=== PATIENT | male | born 1950 | race Caucasian/White ===

== ENCOUNTER 2017-02-10 21:26 | Inpatient (IN) | payer MEDICAID, MEDICARE ==
[~2017-02-10] VITALS: Ht 188 cm; Wt 86.6 kg
[2017-02-10] MEDS ORDERED: ONDANSETRON HCL/PF 4 MG/2 ML VIAL IVP ONE (21:30)
[2017-02-10] MEDS ORDERED: IV NS 0.9% 500 ML BAG IV ONE (21:30)
[2017-02-10] MEDS ORDERED: IV SET PRIMARY 1 EA INFUS.SET MC ONE ×2 (21:30→22:39)
[2017-02-10] MEDS ORDERED: ONDANSETRON HCL/PF 4 MG/2 ML VIAL ONE (21:30)
[2017-02-10] MEDS ORDERED: IV NS 0.9% 500 ML IV ONE (21:30)
--- NOTE | 2017-02-10 21:30 | NUR ---
66 YO MALE BB AMBULANCE FROM [facility]. PT IS ALERT X 3, C/O NAUSEA VOMIT WITH ABD PAIN. PT ASSISTED TO ER BED, SKIN WARM AND DRY, RR EVEN AND UNLABORED. AWAITING ORDERS FROM [facility]
--- NOTE | 2017-02-10 21:36 | NUR ---
20G LEFT HAND IV STARTED. MEDICATED PT ORDERED
[2017-02-10 21:46] LABS: BASOPHILS # (AUTO) 0.5 /CMM (0.0-0.2); BASOPHILS % (AUTO) 3.4 % (0.0-2.0); EOSINOPHILS # (AUTO) 0.5 /CMM (0.0-0.7); EOSINOPHILS % (AUTO) 3.9 % (0.0-6.0); HEMATOCRIT 50 % (39-51); HEMOGLOBIN 16.8 g/dL (13.5-17.5); LYMPHOCYTES # (AUTO) 1.7 /CMM (0.8-4.8); LYMPHOCYTES % (AUTO) 12.4 % (20.0-44.0); MEAN CORPUSCULAR HEMOGLOBIN 31 PG (26.0-33.0); MEAN CORPUSCULAR HGB CONC 34 g/dl (31.0-36.0); MEAN CORPUSCULAR VOLUME 91 fL (80-96); MONOCYTES # (AUTO) 1.2 /CMM (0.1-1.30); MONOCYTES % (AUTO) 8.8 % (2.0-12.0); NEUTROPHILS % (AUTO) 71.5 % (43.0-81.0); PLATELET COUNT (AUTO) 261 /CMM (150-450); RED BLOOD CELL COUNT(AUTO) 5.44 MIL/uL (4.5-6.0); WHITE BLOOD COUNT (AUTO) 13.9 K/uL (4.3-11.0)
[2017-02-10 22:05] LABS: CALCIUM, SERUM 8.2 mg/dL (8.5-10.1); CREATININE 2.9 mg/dL (0.6-1.3)
[2017-02-10 22:10] LABS: BILIRUBIN,DIRECT 0.1 mg/dL (0.0-0.2); BILIRUBIN,TOTAL 0.8 mg/dL (0.2-1.0); TOTAL PROTEIN, SERUM 8.1 g/dL (6.4-8.2)
[2017-02-10] MEDS ORDERED: IV NS 0.9% 1,000 ML BAG IV ONE (22:30)
[2017-02-10] MEDS ORDERED: DIPHENOXYLATE HCL/ATROP SULF 1 UDTAB TABLET PO ONE (22:30)
[2017-02-10 22:37] LABS: ABG BASE EXCESS -9.5 mmol/L; ABG OXYGEN SATURATION 93.9 % (92.0-98.5); ABG PCO2 31.8 mmHg (35.0-45.0); ABG PH 7.304 (7.350-7.450); ABG PO2 78.6 mmHg (75.0-100.0); ABG TOTAL HEMOGLOBIN 16.4 G/dL (13.5-18.0); AaDO2 33.1 mmHg; COHb 1.2 % (0.5-1.5); MetHb 0.3 % (0.0-1.5); O2Hb 92.5 % (94.0-97.0); SITE, ABG Right Radial; VENT MODE, BG ROOM AIR
[2017-02-10] MEDS ORDERED: DIPHENOXYLATE HCL/ATROP SULF 1 UDTAB TABLET ONE (22:39)
[2017-02-10] MEDS ORDERED: IV NS 0.9% 1,000 ML ONE (22:39)
--- NOTE | 2017-02-10 22:47 | NUR ---
MEDICATED PT ORDERED
--- NOTE | 2017-02-10 22:51 | NUR ---
Spoke to Dr. Winslow (partner of Aw[facility] Renner) regarding admission of patient. [facility] in [place].
[2017-02-10] MEDS ORDERED: POTASSIUM CHLORIDE 20 MEQ TAB.PRT.SR PO ONE ×2 (23:00→23:41)
[2017-02-10 23:15] LABS: LACTIC ACID 0.7 mmol/L (0.4-2.0)
--- NOTE | 2017-02-10 23:25 | NUR ---
CALLED NURSING SUP. FOR TELE BED
--- NOTE | 2017-02-10 23:58 | NUR ---
REPORT GIVEN TO MS ELSIE FOR RONY
[2017-02-10] MEDS ORDERED: LEVOFLOXACIN 750 MG /D5W 150ML 150 ML IV ONE (23:59)
[2017-02-10] MEDS ORDERED: IV SET PRIMARY PUMP SET 1 EA INFUS.SET MC ONE (23:59)
[2017-02-11] MEDS ORDERED: DIVA125T3 PO (00:06)
[2017-02-11] MEDS ORDERED: ASPI81TA2 PO (00:06)
[2017-02-11] MEDS ORDERED: ALBU18HF2 INH (00:06)
[2017-02-11] MEDS ORDERED: DEXL30CA3 PO (00:06)
[2017-02-11] MEDS ORDERED: SIMV20TA6 PO (00:06)
[2017-02-11] MEDS ORDERED: METO25TA6 PO (00:06)
[2017-02-11] MEDS ORDERED: BENZ1TAB7 PO (00:06)
[2017-02-11] MEDS ORDERED: HYDR-3024 PO (00:06)
[2017-02-11] MEDS ORDERED: RISP1TAB27 PO ×2 (00:06)
[2017-02-11 00:25] VITALS: BP 128/75
[2017-02-11] MEDS ORDERED: IV NS 0.9% 1,000 ML IV PRN (00:27)
[2017-02-11] MEDS ORDERED: ONDANSETRON HCL/PF 4 MG/2 ML VIAL IVP PRN (00:30)
[2017-02-11] MEDS ORDERED: Z GUARD REMEDY 2 OZ OINT TP PRN (00:30)
[2017-02-11] MEDS ORDERED: MAGNESIUM HYDROXIDE 30 ML UDC PO PRN (00:30)
[2017-02-11] MEDS ORDERED: ACETAMINOPHEN 325 MG TABLET PO PRN (00:30)
[2017-02-11] MEDS ORDERED: MAG HYDROX/AL HYDROX/SIMETH 30 ML UDC PO PRN (00:30)
[2017-02-11] MEDS ORDERED: ZOLPIDEM TARTRATE 5 MG TABLET PO PRN (00:30)
[2017-02-11] MEDS ORDERED: IV NS 0.9% 1,000 ML ONE (00:44)
[2017-02-11] MEDS ORDERED: IV SET PRIMARY PUMP SET 1 EA INFUS.SET MC ONE (00:44)
[2017-02-11] MEDS ORDERED: SECONDARY IV SET 1 EA INFUS.SET MC ONE (00:45)
[2017-02-11] MEDS: IV NS 0.9% 1,000 ML IV PRN (00:54)
[2017-02-11 00:57] LABS: APPEARANCE,URINE SL CLOUDY (CLEAR); BILIRUBIN,URINE 1+ (NEGATIVE); BLOOD, URINE NEGATIVE Ery/uL (NEGATIVE); COLOR,URINE YELLOW (YELLOW); KETONES,URINE TRACE (NEGATIVE); LEUKOCYTE ESTERASE ,URINE NEGATIVE (NEGATIVE); NITRITE, URINE NEGATIVE (NEGATIVE); PH,URINE 5.5 (5.0-8.0); PROTEIN,URINE 1+ mg/dl (NEGATIVE); UGLUCOSE NEGATIVE (NEGATIVE); UROBILINOGEN,URINE 0.2 EU/dL (0.2)
[2017-02-11 01:03] LABS: ADD URINE CULTURE NO; BACTERIA,URINE None seen /HPF (None Seen); RBC,URINE 0-2 /HPF (0-2); SQUAMOUS EPITHELIAL CELL,UR Rare /HPF (None Seen); WBC,URINE 0-2 /HPF (0-3)
[2017-02-11 01:04] LABS: URINE AMORPHOUS URATE Few /HPF (None Seen)
--- NOTE | 2017-02-11 01:10 | NUR ---
MS/RN NOTES RECEIVED NEW ADMITED PATIENT FROM ER , 66YO MALE FROM [facility] WITH N/V EPISODE. ARRIVED ON A GURNEY ASSISTED TO BED . AWAKE, ALERTX3. NO S/S OF SOB OR DISTRESS. ABLE TO VERBALIZE NEEDS. DISCUSSED CARE AND CHECKED V.C, BELONGINGS, PROVIDED WATER, ROOM ORIENTATION. ASSESS BODY, WITH NOTED REDNESS ON LEFT HAND SIDE AND LOWER BACK BUT REFUSED TO HAVE PHOTO TAKEN FOR NOW. IV SITE ON LEFT HAND, PROVIDED IV FLUIDS ORDERED AND CONTINUED ATB STARTED FROM ER.
[2017-02-11] MEDS ORDERED: DIPHENOXYLATE HCL/ATROP SULF 1 UDTAB TABLET PO PRN (01:30)
[2017-02-11 01:33] VITALS: BP 128/75
[2017-02-11 02:26] LABS: ACETONE, SERUM NEGATIVE (NEGATIVE)
--- NOTE | 2017-02-11 06:12 | NUR ---
MS/RN CLOSING NOTES PATIENT IN BED, AWAKE. ABLE TO VERBALIZE NEEDS. ASSISTED TO BATHROOM, WITH UNSTEADY GAIT. NO S/S OF SOB OR DISTRESS. PROVIDE FLUIDS.LKEPT COMFORTABLE. CALL LIGHTS WITHIN REACH. INFORM THE NEED TO CALL FOR ASSISTANCE.COOPERATIVE TO CARE AND HAVE ALLOWED TO TAKE A PHOTO OF REDNESS IN LEFT FOREARM AND LOWER BACK.
[2017-02-11 07:20] LABS: CALCIUM, SERUM 7.5 mg/dL (8.5-10.1); CREATININE 1.9 mg/dL (0.6-1.3); POTASSIUM 3.2 mmol/L (3.5-5.1)
[2017-02-11 08:00] VITALS: BP 113/64
--- NOTE | 2017-02-11 08:00 | NUR ---
MS RN NOTES PATIENT IN BED RESTING NO SOB OR ACUTE DISTRESS NOTED. PATIENT IN BED RESTING. BED IN LOW LOCKED POSITION.CALL LIGHT WITHIN REACH. WILL CONTINUE TO MONITOR.
[2017-02-11] MEDS: PANTOPRAZOLE 40 MG TABLET.DR PO SCH (08:47)
[2017-02-11] MEDS ORDERED: LEVOFLOXACIN 750 MG /D5W 150ML 750 MG in PREMIX 1 EA IV SCH ×3 (09:00)
[2017-02-11] MEDS ORDERED: POTASSIUM CHLORIDE 10 MEQ TABLET.SA PO ONE (11:00)
--- NOTE | 2017-02-11 14:00 | NUR ---
MS RN NOTES PATIENT SEEN AND EVALUATED BY EDE Franklin GLYCERIN OPERATOR ORDERS NOTED AND CARRIED OUT.
[2017-02-11] MEDS ORDERED: IPRATROPIUM NEB FS 0.5 MG/2.5 ML AMPUL.NEB NEB PRN (16:30)
[2017-02-11] MEDS ORDERED: ALBUTEROL HALF STRENGTH 1.25 MG/3 ML VIAL.NEB NEB PRN (16:30)
[2017-02-11 16:33] VITALS: BP 119/70
--- NOTE | 2017-02-11 19:26 | NUR ---
MS RN NOTES. PATIENT IN BED RESTING NO SOB OR ACUTE DISTRESS NOTED. ALL DUE MEDICATIONS GIVEN. ALL NEEDS MET. ENDORSED TO PM SHIFT RONY. IV ON RIGHT FOREARM INTACT PATENT. RUNNING PRESCRIBED FLUIDS.
[2017-02-11 20:00] VITALS: BP 149/82
--- NOTE | 2017-02-11 20:12 | NUR ---
MS/RN OPENING NOTES PATIENT ASLEEP BUT NO S/S OF SOB OR DISTRESS. ABLE TO VERBALIZE NEEDS . WILL PROVIDE CARE AND CONTINUE MONITORING, CALL LIGHTS WITHIN REACH. BED IN LOCK POSITION BED ALARM ON.
[2017-02-12] MEDS: IV NS 0.9% 1,000 ML IV PRN (01:20)
--- NOTE | 2017-02-12 06:23 | NUR ---
MS/RN CLOSING NOTES PATIENT, ALERT, ORIENTED X3. AWAKE. ABLE TO VERBALIZE NEEDS AND RESPOND WITH SIMPLE ANSWER, NO S/S OF SOB OR DISTRESS. REMIND NOT TO GET UP UN ASSISTED FOR SAFETY. WILL CONTINUE TO MONITOR.WILL ENDORSE TO AM RN FOR CONTINUE OF CARE.
[2017-02-12 06:51] LABS: BASOPHILS % (AUTO) 0.1 % (0.0-2.0); EOSINOPHILS # (AUTO) 0.5 /CMM (0.0-0.7); EOSINOPHILS % (AUTO) 4.2 % (0.0-6.0); HEMATOCRIT 41 % (39-51); HEMOGLOBIN 13.6 g/dL (13.5-17.5); LYMPHOCYTES # (AUTO) 1.3 /CMM (0.8-4.8); LYMPHOCYTES % (AUTO) 11.6 % (20.0-44.0); MEAN CORPUSCULAR HEMOGLOBIN 31 PG (26.0-33.0); MEAN CORPUSCULAR HGB CONC 34 g/dl (31.0-36.0); MEAN CORPUSCULAR VOLUME 91 fL (80-96); MONOCYTES % (AUTO) 9.5 % (2.0-12.0); NEUTROPHILS # (AUTO) 8.1 /CMM (1.8-8.9); NEUTROPHILS % (AUTO) 74.6 % (43.0-81.0); PLATELET COUNT (AUTO) 207 /CMM (150-450); RED BLOOD CELL COUNT(AUTO) 4.43 MIL/uL (4.5-6.0); WHITE BLOOD COUNT (AUTO) 10.9 K/uL (4.3-11.0)
[2017-02-12 07:10] LABS: CALCIUM, SERUM 7.6 mg/dL (8.5-10.1); CREATININE 1.1 mg/dL (0.6-1.3); MAGNESIUM 1.8 mg/dL (1.8-2.4); PHOSPHORUS 2.6 mg/dL (2.5-4.9)
[2017-02-12 07:16] LABS: CHOLESTEROL 102 mg/dL (<200); HDL CHOLESTEROL 38 mg/dL (40-60); LDL 54 mg/dL (0-99); TRIGLYCERIDES 53 mg/dL (30-150)
[2017-02-12 08:00] VITALS: BP 132/75
--- NOTE | 2017-02-12 08:00 | NUR ---
RN AM NOTES RECEIVED PATIENT IN BED ASLEEP, BUT EASILY AROUSABLE. ALERT AND ORIENTED X3. ABLE TO AMBULATE TO RESTROOM WITH ASSISTANCE. WILL DOUBLE CHECK WITH PT EVKINZA AND NEPHRO CONSULT WITH DR FRANCISCO. WILL CONTINUE TO MONITOR.
[2017-02-12] MEDS ORDERED: POTASSIUM CHLORIDE 20 MEQ TAB.PRT.SR PO SCH ×2 (09:00→16:30)
[2017-02-12] MEDS: PANTOPRAZOLE 40 MG TABLET.DR PO SCH (09:56)
[2017-02-12 16:00] VITALS: BP 110/68
[2017-02-12] MEDS ORDERED: hydrALAZINE HCL 25 MG TABLET PO PRN (16:45)
--- NOTE | 2017-02-12 19:20 | NUR ---
RN PM NOTES PATIENT RESTING IN BED AFTER TWO EPISODES OF NOT WANTING TO COOPERATE AFTER CONFISCATING HIS CIGARETTES. EXPLAINED TO PATIENT ADVANTAGES AND DISADVANTAGES OF SMOKING CESSATION. EXPLAINED ABOUT EFFECTS OF NOT WANTING IV FLUIDS CONNECTED. PATIENT STILL REFUSED. WILL ENDORSE TO NEXT SHIFT.
--- NOTE | 2017-02-12 19:30 | NUR ---
MS RN NOTE RECEIVED PATIENT ASLEEP IN BED. EASILY AROUSABLE BY NAME. NO PAIN OR DISCOMFORT AT THIS TIME. IV SITE INTACT. PT. ALLOWED ME TO BEGIN INFUSING FLUIDS. NO REDNESS OR INFILTRATION NOTED. BED LOCKED AND IN LOWEST POSITION. SIDE RAILS UP, CALL LIGHT WITHIN REACH. WILL CONTINUE TO MONITOR.
[2017-02-12 20:00] VITALS: BP 117/71
[2017-02-12 22:00] VITALS: BP 117/71
[2017-02-13] MEDS: LEVOFLOXACIN 750 MG /D5W 150ML 750 MG in PREMIX 1 EA IV SCH (00:38)
[2017-02-13] MEDS: PANTOPRAZOLE 40 MG TABLET.DR PO SCH (06:28)
[2017-02-13] MEDS: IV NS 0.9% 1,000 ML IV PRN ×2 (06:32→16:59)
--- NOTE | 2017-02-13 07:30 | NUR ---
AM RN NOTE Received patient sleeping comfortably in his bed but arouses upon touch. No acute distress noted. Resp even and non-labored. IV site intact and patent. Bed in low locked position. Will continue to monitor.
[2017-02-13 08:00] VITALS: BP 121/71
[2017-02-13] MEDS: POTASSIUM CHLORIDE 20 MEQ TAB.PRT.SR PO SCH (08:10)
[2017-02-13] MEDS: risperiDONE 1 MG TABLET PO SCH ×2 (10:31→22:06)
[2017-02-13] MEDS: METOPROLOL TARTRATE 25 MG TABLET PO SCH (10:31)
--- NOTE | 2017-02-13 10:51 | NUR ---
AM RN NOTE Per Lore (Lab) need MRSA swab sample. Sample for stool (C-diff) and MRSA (L nare) collected and call placed to lab.
[2017-02-13] MEDS: DIVALPROEX SODIUM 125 MG TABLET.DR PO SCH ×2 (12:10→16:57)
[2017-02-13] MEDS: hydrOXYzine 10 MG TABLET PO SCH ×2 (12:10→16:57)
[2017-02-13 16:00] VITALS: BP 108/64
[2017-02-13] MEDS: SIMVASTATIN 20 MG TABLET PO SCH (16:58)
--- NOTE | 2017-02-13 19:05 | NUR ---
AM RN NOTE Patient awake, denies any pain or discomfort at this time. IV site intact and patent and continue om hydration as ordered. Will endorse to next shift for RONY.
--- NOTE | 2017-02-13 19:20 | NUR ---
RN NOTE RECEIVED REPORT. NO S/S OF ANY DISTRESS AT THIS TIME, NO SOB/WHEEZING NOTED. ON NC 2L. ASPIRATION PRECAUTIONS RENDERED. ALL NEEDS ATTENED TO AT THIS TIME. WILL CONT TO MONITOR.
[2017-02-13 20:00] VITALS: BP 117/63
--- NOTE | 2017-02-13 22:00 | NUR ---
RN NOTE AMBULANCE ARRIVED FOR PT DISCHARGE TO [place]. PAPERWORK SIGNED, MEDICATIONS RETURNED, IV D/C'ED. VSS. NO DISTRESS NOTED AT THIS TIME. BREATHING NON-L;ABORED AND EVEN. DUE MEDS GIVEN, WELL LEVEMIR 12 UNITS. PICTURES TAKEN, REPORT GIVEN TO HEALTH WORKERS. PT LEFT WITH ALL BELONGINGS. Addendum: 02/14/17 at 0134 by BEULAH DELCID RN WRONG PATIENT
[2017-02-13] MEDS: BENZTROPINE MESYLATE (1 MG) 1 MG TABLET PO SCH (22:10)
--- NOTE | 2017-02-14 02:00 | NUR ---
RN NOTE PT RESTING COMFORTABLY IN BED WITH EYES CLOSED. NO DISTRESS NOTED AT THIS TIME. WILL MONITOR.
[2017-02-14] MEDS: IV NS 0.9% 1,000 ML IV PRN (04:29)
[2017-02-14] MEDS: hydrOXYzine 10 MG TABLET PO SCH ×4 (06:17→17:06)
--- NOTE | 2017-02-14 06:45 | NUR ---
RN NOTE NO SIGNIFICANT CHANGES OVERNIGHT. PT SLEPT WELL, NO S/S OF ANY DISTRESS AT THIS TIME. NO C/O PAIN OR DISCOMFORT. IV INTACT AND PATENT, TOLERATING FLUIDS WELL. ALL NEEDS ATTENDED TO, CALL LIGHT IN REACH. WILL F/U WITH DAY SHIFT FOR RONY.
[2017-02-14 07:18] LABS: CALCIUM, SERUM 7.9 mg/dL (8.5-10.1); CREATININE 0.8 mg/dL (0.6-1.3); POTASSIUM 3.6 mmol/L (3.5-5.1)
[2017-02-14 07:22] LABS: BASOPHILS % (AUTO) 0.4 % (0.0-2.0); EOSINOPHILS # (AUTO) 0.2 /CMM (0.0-0.7); EOSINOPHILS % (AUTO) 2.8 % (0.0-6.0); HEMATOCRIT 37 % (39-51); HEMOGLOBIN 12.3 g/dL (13.5-17.5); LYMPHOCYTES # (AUTO) 2.1 /CMM (0.8-4.8); LYMPHOCYTES % (AUTO) 27.2 % (20.0-44.0); MEAN CORPUSCULAR HEMOGLOBIN 31 PG (26.0-33.0); MEAN CORPUSCULAR HGB CONC 34 g/dl (31.0-36.0); MEAN CORPUSCULAR VOLUME 91 fL (80-96); MONOCYTES % (AUTO) 12.2 % (2.0-12.0); NEUTROPHILS # (AUTO) 4.5 /CMM (1.8-8.9); NEUTROPHILS % (AUTO) 57.4 % (43.0-81.0); PLATELET COUNT (AUTO) 198 /CMM (150-450); RDW COEFFICIENT OF VARIATION 13.3 (11.5-15.0); RED BLOOD CELL COUNT(AUTO) 4.01 MIL/uL (4.5-6.0); WHITE BLOOD COUNT (AUTO) 7.8 K/uL (4.3-11.0)
--- NOTE | 2017-02-14 07:30 | NUR ---
PT RECEIVED RESTING COMFORTABLY IN BED WITH EYES CLOSED. NO S/S OR C/O PAIN OR DISTRESS NOTED. SIDE RAILS UP X2, CALL LIGHT LEFT WITHIN REACH. WILL CONTINUE PLAN OF CARE.
[2017-02-14 08:00] VITALS: BP 134/53
[2017-02-14] MEDS: PANTOPRAZOLE 40 MG TABLET.DR PO SCH (09:14)
[2017-02-14] MEDS: ASPIRIN 81 MG TAB.CHEW PO SCH (09:14)
[2017-02-14] MEDS: POTASSIUM CHLORIDE 20 MEQ TAB.PRT.SR PO SCH (09:15)
[2017-02-14] MEDS: METOPROLOL TARTRATE 25 MG TABLET PO SCH (09:15)
[2017-02-14] MEDS: DIVALPROEX SODIUM 125 MG TABLET.DR PO SCH ×3 (09:15→17:06)
[2017-02-14] MEDS: risperiDONE 1 MG TABLET PO SCH ×2 (09:15→22:41)
[2017-02-14 16:26] VITALS: BP_SYST 119; BP_SYST 155; BP_DIAS 71; BP_DIAS 88
[2017-02-14] MEDS: SIMVASTATIN 20 MG TABLET PO SCH (17:06)
--- NOTE | 2017-02-14 18:59 | NUR ---
CHANGE OF SHIFT REPORT PT RESTING COMFORTABLY IN BED. NO S/S OR C/O PAIN OR DISTRESS NOTED. SIDE RAILS UP X2, CALL LIGHT LEFT WITHIN REACH. PT KEPT CLEAN, DRY, AND COMFORTABLE. NO SIGNIFICANT CHANGES SINCE PREVIOUS SHIFT. WILL GIVE REPORT TO GEGE ZIMMERMAN.
--- NOTE | 2017-02-14 19:25 | NUR ---
MS RN NOTES RECEIVED PT IN BED, RESTING COMFORTABLY. VERBALLY RESPONSIVE. A/O X 3. NO ACUTE DISTRESS, NO SOB NOTED. RESPIRATION IS EVEN AND UNLABORED. IV SITE ON LEFT SHOULDER INTACT AND PATENT, IVF INFUSING WELL. ALL NEEDS ATTENDED AND MET. KEPT COMFORTABLE. CALL LIGHT WITHIN REACH. WILL CONT TO MONITOR.
[2017-02-14 20:00] VITALS: BP 124/69
[2017-02-14 22:00] VITALS: BP 124/69
[2017-02-14] MEDS: BENZTROPINE MESYLATE (1 MG) 1 MG TABLET PO SCH (22:40)
[2017-02-15] MEDS: LEVOFLOXACIN 750 MG /D5W 150ML 750 MG in PREMIX 1 EA IV SCH (00:13)
[2017-02-15] MEDS: hydrOXYzine 10 MG TABLET PO SCH ×3 (00:13→12:55)
[2017-02-15] MEDS: IV NS 0.9% 1,000 ML IV PRN (00:23)
[2017-02-15 06:43] LABS: BASOPHILS % (AUTO) 0.3 % (0.0-2.0); EOSINOPHILS # (AUTO) 0.2 /CMM (0.0-0.7); EOSINOPHILS % (AUTO) 2.9 % (0.0-6.0); HEMATOCRIT 36 % (39-51); HEMOGLOBIN 12.1 g/dL (13.5-17.5); LYMPHOCYTES # (AUTO) 2.5 /CMM (0.8-4.8); LYMPHOCYTES % (AUTO) 30.6 % (20.0-44.0); MEAN CORPUSCULAR HEMOGLOBIN 31 PG (26.0-33.0); MEAN CORPUSCULAR HGB CONC 34 g/dl (31.0-36.0); MEAN CORPUSCULAR VOLUME 91 fL (80-96); MONOCYTES % (AUTO) 11.8 % (2.0-12.0); NEUTROPHILS # (AUTO) 4.4 /CMM (1.8-8.9); NEUTROPHILS % (AUTO) 54.4 % (43.0-81.0); PLATELET COUNT (AUTO) 185 /CMM (150-450); RDW COEFFICIENT OF VARIATION 13.2 (11.5-15.0); RED BLOOD CELL COUNT(AUTO) 3.92 MIL/uL (4.5-6.0); WHITE BLOOD COUNT (AUTO) 8.1 K/uL (4.3-11.0)
--- NOTE | 2017-02-15 06:45 | NUR ---
MS RN NOTES PT IN BED, ASLEEP AT THIS TIME, AROUSES EASILY. VERBALLY RESPONSIVE. A/O X 3. NO ACUTE DISTRESS, NO SOB NOTED. RESPIRATION IS EVEN AND UNLABORED. IV SITE ON LEFT HAND INTACT AND PATENT, IVF INFUSING WELL. PT IS AMBULATORY WITH ASSISTANCE GOING TO THE BATHROOM. ALL NEEDS ATTENDED AND MET. KEPT COMFORTABLE. CALL LIGHT WITHIN REACH. WILL ENDORSE TO NEXT SHIFT FOR RONY.
[2017-02-15 06:56] LABS: CALCIUM, SERUM 8.1 mg/dL (8.5-10.1); CREATININE 0.9 mg/dL (0.6-1.3); POTASSIUM 3.9 mmol/L (3.5-5.1)
--- NOTE | 2017-02-15 07:21 | NUR ---
MS RN OPENING NOTES RECEIVED PATIENT IN BED AWAKE AND ALERT IN NO ACUTE SIGNS OF DISTRESS. VERBALLY RESPONSIVE, NO COMPLAINTS OF PAIN OR DISCOMFORTS AT THIS TIME. ON ROOM AIR, BREATHING UN-LABORED WITH NO SOB NOTED. IV ACCESS ON LEFT HAND INTACT AND PATENT WITH IVF OF NS INFUSING WELL, NO S/S OF INFILTRATION NOTED. CALL LIGHT WITHIN REACH, BED LOW AND LOCKED. ALL SAFETY PRECAUTIONS MAINTAINED. WILL CONTINUE TO MONITOR ACCORDINGLY.
[2017-02-15 08:00] VITALS: BP 118/68
[2017-02-15] MEDS: PANTOPRAZOLE 40 MG TABLET.DR PO SCH (08:03)
[2017-02-15] MEDS: ASPIRIN 81 MG TAB.CHEW PO SCH (08:03)
[2017-02-15] MEDS: POTASSIUM CHLORIDE 20 MEQ TAB.PRT.SR PO SCH (08:03)
[2017-02-15] MEDS: risperiDONE 1 MG TABLET PO SCH (08:03)
[2017-02-15 08:04] VITALS: BP 118/68
[2017-02-15] MEDS: METOPROLOL TARTRATE 25 MG TABLET PO SCH (08:04)
[2017-02-15] MEDS: DIVALPROEX SODIUM 125 MG TABLET.DR PO SCH ×2 (08:04→12:55)
[2017-02-15] MEDS ORDERED: LEVO500T15 PO (09:11)
--- NOTE | 2017-02-15 14:12 | NUR ---
MS RN DISCHARGED NOTES PATIENT DISCHARGED TO [facility] AT 1400 VIA GURNEY IN STABLE CONDITION ACCOMPANIED BY 2 EMT'S. ALERT AND ORIENTED X 3, NO COMPLAINTS OF PAIN OR DISCOMFORTS DURING DISCHARGED. REPORT GIVEN TO ELSIE PRITCHETT OF [facility]. VITALS SIGNS CHECKED AND RECORDED. BELONGINGS CHECKED, COUNTED AND SIGNED FORM. PHOTOS OF SKIN REDNESS TO LEFT FOREARM AND LOWER BACK TAKEN AND FILED ON CHART. HEALTH TEACHINGS GIVEN TO PATIENT AND VERBALIZED UNDERSTANDING. MD AND CHARGE NURSE AWARE OF DISCHARGE.
[2017-02-16] MEDS ORDERED: LEVOFLOXACIN (750 MG) 750 MG TABLET PO SCH (23:00)
== END 2017-02-15 14:00 | DRG 140 ==
LOC: ER 21:29 → MED 02-11 00:03
PROVIDERS: ADMIT Nurse Practitioner Acute Care; ATTEND Nurse Practitioner Acute Care
DX: J44.0 Chronic obstructive pulmonary disease with (acute) lower respiratory infection (principal); N17.0 Acute kidney failure with tubular necrosis; E87.2 Acidosis; J15.9 Unspecified bacterial pneumonia; E87.6 Hypokalemia; K21.9 Gastro-esophageal reflux disease without esophagitis; F31.9 Bipolar disorder, unspecified; I12.9 Hypertensive chronic kidney disease with stage 1 through stage 4 chronic kidney disease, or unspecified chronic kidney disease; N18.9 Chronic kidney disease, unspecified; F17.210 Nicotine dependence, cigarettes, uncomplicated; N40.0 Benign prostatic hyperplasia without lower urinary tract symptoms; D72.829 Elevated white blood cell count, unspecified; F20.9 Schizophrenia, unspecified; F03.90 Unspecified dementia, unspecified severity, without behavioral disturbance, psychotic disturbance, mood disturbance, and anxiety; Z86.19 Personal history of other infectious and parasitic diseases
CPT/HCPCS: 36415; 36600; 71010-TC; 80048-TC; 80061-TC; 80076-TC; 80164-TC; 81000-TC; 82010-TC; 82803-TC; 83605-TC; 83690-TC; 83735-TC; 84100-TC; 85025-TC; 87040-TC; 87081-TC; 97001-TC; A4216; A4606; J1956; J2405; J7030; J7040; Q0177; Z7610